=== PATIENT | female | born 1985 | race Caucasian/White ===

== ENCOUNTER → 2021-10-17 | Outpatient (CLI) | payer OTHER ==
[~2021-10-17] MED LIST: ANAPROX DS550 MG PO; CLINDAMYCIN HC300 MG PO; HYDROCODONE BIT1 T11 PO; MOTRIN800 MG PO
== END | disposition home or self-care (01) ==
LOC: RAD 10:17
PROVIDERS: ATTEND Orthopaedic Surgery
DX: M17.11 Unilateral primary osteoarthritis, right knee (principal); M25.461 Effusion, right knee

== ENCOUNTER 2022-11-30 19:34 | Emergency (ER) | payer OTHER ==
[~2022-11-30] VITALS: Wt 70.3 kg
[2022-11-30] MEDS ORDERED: IBUPROFEN600 MG PO (21:51)
[2022-11-30] MEDS ORDERED: METHOCARBAMOL500 M1 PO (21:51)
== END 2022-11-30 21:57 | disposition home or self-care (01) ==
LOC: ED 19:34
DX: S33.5XXA Sprain of ligaments of lumbar spine, initial encounter (principal); M25.461 Effusion, right knee; M25.512 Pain in left shoulder; M54.50 Low back pain, unspecified; Z88.1 Allergy status to other antibiotic agents; Z88.8 Allergy status to other drugs, medicaments and biological substances; Z98.890 Other specified postprocedural states; V89.2XXA Person injured in unspecified motor-vehicle accident, traffic, initial encounter; Y93.89 Activity, other specified; Y92.410 Unspecified street and highway as the place of occurrence of the external cause; Y99.8 Other external cause status

== ENCOUNTER 2023-01-20 20:15 | Emergency (ER) | payer OTHER ==
[~2023-01-20] VITALS: Ht 157.4 cm; Wt 65.8 kg
[~2023-01-20 20:15] MED LIST changes: +IBUPROFEN600 MG PO; +METHOCARBAMOL500 M1 PO
[2023-01-20] MEDS ORDERED: PENICILLIN VK500 MG PO (22:19)
== END 2023-01-20 22:34 | disposition home or self-care (01) ==
LOC: ED 20:15
DX: J02.0 Streptococcal pharyngitis (principal); Z88.8 Allergy status to other drugs, medicaments and biological substances; Z98.890 Other specified postprocedural states; Z20.822 Contact with and (suspected) exposure to COVID-19